=== PATIENT | female | born 1950 | race Caucasian/White ===

== ENCOUNTER 2025-03-30 06:14 | Emergency (ER) | payer MEDICARE, SELFPAY ==
--- NOTE | ~2025-03-30 | CT_ITS ---
CT HEAD NON-CONTRAST CT C-SPINE Clinical History: fall Comparison: None Technique: Unenhanced axial images skull base to vertex. Coronal, sagittal reformats. Axial images thoracic inlet to skull base. Sagittal and coronal reformats. CT images acquired with automatic exposure control for dose reduction DLP: 681 mGy-cm Findings: Head: Mild global atrophy Embolization coils along intracranial ICA left side. Associated streak artifact causes regional obscuration. Sulci, ventricles: Unremarkable. No intracerebral hemorrhage. No evidence acute territorial infarct. No mass effect, midline shift, intra-/extra-axial fluid collection. Bony calvarium intact. Visualized paranasal sinuses: Clear. Mastoid air cells: Clear. Right parietal scalp hematoma. C-spine: No acute fracture. Grade 1 anterolisthesis of C3 on 4, C4 on 5. Grade 1 retrolisthesis of C5 on C6. Vertebral bodies normal height and alignment. Mild degenerative changes. Disc spaces maintained. Prevertebral soft tissues within normal limits. Visualized lung apices: Scarring. Visualized thyroid: Unremarkable. No enlarged cervical nodes. IMPRESSION: HEAD: 1. No acute intracranial findings. C-SPINE: 1. No acute fracture. Reviewed, dictated and finalized at location R. IMPRESSION: HEAD: 1. No acute intracranial findings. C-SPINE: 1. No acute fracture.
[2025-03-30 06:15] VITALS: BP 194/94; PULSE 59; RESP 16; TEMP 36.4; O2SAT 100
[2025-03-30] MEDS: TETANUS,DIPHTHERIA,AC PERTUSSIS ADULT (0.5 ML) BOOSTRIX IM (06:26)
--- NOTE | 2025-03-30 06:35 | ED_ITS ---
HPI - Fall General Chief Complaint: Fall <Lucila Buitrago MD - Last Filed: 03/30/25 06:39> Stated Complaint: fall <Lucila Buitrago MD - Last Filed: 03/30/25 06:39> Time Seen by Provider: 03/30/25 06:21 <Lucila Buitrago MD - Last Filed: 03/30/25 06:39> History of Present Illness HPI Narrative: Patient was found with blood all over her bed, she denies any complaints and does not remember what happened. <Lucila Buitrago MD - Last Filed: 03/30/25 06:39> Related Data Allergies/Adverse Reactions: Allergies Allergy/AdvReac Type Severity Reaction Status Date / Time No Known Allergies Allergy Verified 03/30/25 09:40 <Lucila Buitrago MD - Last Filed: 03/30/25 06:39> Review of Systems Review of Systems: All systems reviewed & are unremarkable except as noted in HPI and below <Lucila Buitrago MD - Last Filed: 03/30/25 06:39> Exam Narrative: EXAMINATION OF ORGAN SYSTEMS/BODY AREAS: Constitutional: Vital signs per nursing GENERAL:[No acute distress, non-toxic appearing.] HEAD: Scalp laceration back of her head EYES: EOMI, conjunctiva normal ENT: Hearing grossly intact LUNGS: Nonlabored breathing. HEART: [Regular rate and rhythm] ABD: [Soft], [nontender to palpation] EXT: Normal range of motion, no deformity, no tenderness to palpation SKIN: Laceration to back of head NEURO: [Alert. No gross focal sensory or strength deficits.] PSYCH: Normal affect <Lucila Buitrago MD - Last Filed: 03/30/25 06:39> Course Vital Signs Vital signs: Vital Signs Temperature 97.6 F 03/30/25 06:15 Pulse Rate 59 L 03/30/25 06:15 Respiratory Rate 16 03/30/25 06:15 Blood Pressure 194/94 H 03/30/25 06:15 Pulse Oximetry 100 03/30/25 06:15 Oxygen Delivery Room Air 03/30/25 06:15 Temperature 97.6 F 03/30/25 06:15 Pulse Rate 67 03/30/25 09:40 Respiratory Rate 20 03/30/25 09:40 Blood Pressure 156/89 H 03/30/25 09:40 Pulse Oximetry 98 09/21/25 09:40 Oxygen Delivery Room Air 03/30/25 06:15 <Lucila Buitrago MD - Last Filed: 03/30/25 06:39> Vital Signs Temperature 97.6 F 03/30/25 06:15 Pulse Rate 59 L 03/30/25 06:15 Respiratory Rate 16 03/30/25 06:15 Blood Pressure 194/94 H 03/30/25 06:15 Pulse Oximetry 100 03/30/25 06:15 Oxygen Delivery Room Air 03/30/25 06:15 Temperature 97.6 F 03/30/25 06:15 Pulse Rate 67 03/30/25 09:40 Respiratory Rate 20 03/30/25 09:40 Blood Pressure 156/89 H 03/30/25 09:40 Pulse Oximetry 98 03/30/25 09:40 Oxygen Delivery Room Air 03/30/25 06:15 <Reilly Aden MD - Last Filed: 03/30/25 17:16> Procedures Laceration Laceration 1: Date: 03/30/25 <Lucila Buitrago MD - Last Filed: 03/30/25 06:39> Time: 06:37 <Lucila Buitrago MD - Last Filed: 03/30/25 06:39> Site: scalp <Lucila Buitrago MD - Last Filed: 03/30/25 06:39> Size (cm): 4 <Lucila Buitrago MD - Last Filed: 03/30/25 06:39> Description: linear <Lucila Buitrago MD - Last Filed: 03/30/25 06:39> Depth: simple, single layer <Lucila Buitrago MD - Last Filed: 03/30/25 06:39> Local Anesthetic: lidocaine 1% and with epi <Lucila Buitrago MD - Last Filed: 03/30/25 06:39> Amount of anesthesia used (mL): 3 <Lucila Buitrago MD - Last Filed: 03/30/25 06:39> Pre-repair: wound explored, irrigated, irrigated extensively and deep structures intact <Lucila Buitrago MD - Last Filed: 03/30/25 06:39> ====== Skin Level ======: Skin layer closed with: josé luis <Lucila Buitrago MD - Last Filed: 03/30/25 06:39> Number of sutures: 3 <Lucila Buitrago MD - Last Filed: 03/30/25 06:39> ====== Subcutaneous Layer ======: ====== Muscle Layer ======: ====== Tendon Layer ======: MDM - Fall MDM Narrative Medical decision making narrative: 74-year-old female presents here after she was found have head trauma, she does not know what happened, does have history of dementia. She does have a 4 cm laceration to the back of her head that is gently using, have cleaned this well, irrigated and cleaned with wound cleanser, and opted to close at this time with josé luis to prevent bleeding. CT head and C-spine ordered since she has no signs of injury elsewhere Patient signed out to oncoming ER physician pending CT <Lucila Buitrago MD - Last Filed: 03/30/25 06:39> 74-year-old female presents here after she was found have head trauma, she does not know what happened, does have history of dementia. She does have a 4 cm laceration to the back of her head that is gently using, have cleaned this well, irrigated and cleaned with wound cleanser, and opted to close at this time with josé luis to prevent bleeding. CT head and C-spine ordered since she has no signs of injury elsewhere Patient signed out to oncoming ER physician pending CT --- Patient care signed out to me by the overnight physician with CT pending to. Both CT brain CT cervical spine showed no acute abnormalities. Patient is at her baseline, laceration was repaired. Patient is being discharged back to her care facility. <Reilly Aden MD - Last Filed: 03/30/25 17:16> Differential Diagnosis Differential diagnosis: Likely other (Cervical spine fracture, subdural hematoma, subarachnoid hemorrhage, skull fracture, laceration) <Reilly Aden MD - Last Filed: 03/30/25 17:16> Discharge Plan Discharge Clinical Impression: Laceration of scalp, Head injury <Lucila Buitrago MD - Last Filed: 03/30/25 06:39> Patient Disposition: Home <Lucila Buitrago MD - Last Filed: 03/30/25 06:39> Condition: Stable <Lucila Buitrago MD - Last Filed: 03/30/25 06:39> Instructions: Antibiotic Form, Head Injury (ED) <Lucila Buitrago MD - Last Filed: 03/30/25 06:39> Additional Instructions: You have 3 josé luis in the back of your scalp that will need to be removed in 7-10 days. Please follow-up with your doctor and come back to the ER for any further issues. <Lucila Buitrago MD - Last Filed: 03/30/25 06:39> Patient Language: Azerbaijani <Lucila Buitrago MD - Last Filed: 03/30/25 06:39> Follow-up/Referrals: Diana,Rosa Pena MD [Primary Care Provider] <Lucila Buitrago MD - Last Filed: 03/30/25 06:39>
[2025-03-30 09:40] VITALS: BP 156/89; PULSE 67; RESP 20; O2SAT 98
== END 2025-03-30 09:44 | disposition home or self-care (01) ==
LOC: ANHED 06:43
PROVIDERS: Emergency Provider Emergency Medicine; PCP Internal Medicine
DX: S01.01XA Laceration without foreign body of scalp, initial encounter (principal); X58.XXXA Exposure to other specified factors, initial encounter
CPT/HCPCS: 70450; 72125; 90715; 99284

== ENCOUNTER 2025-05-22 19:14 | Emergency (ER) | payer MEDICARE, OTHER, SELFPAY ==
[2025-05-22] VITALS (16 sets, daily range): BP systolic 97–187; BP diastolic 46–96; PULSE 57–71; RESP 15–22; TEMP 36.8; O2SAT 97–100
--- NOTE | ~2025-05-22 | XR_ITS ---
XR chest 2V HOSTORY: SOB COMPARISON:[ None] FINDINGS: Frontal and lateral views of the chest were obtained. The lungs are clear. The heart size is normal in size. Pulmonary vasculature is unremarkable. Large hiatal hernia is noted. Osseous structures are intact. IMPRESSION: No acute lung findings.] [There is a large hiatal hernia.] Reviewed, dictated and finalized at location S. [employer]
[2025-05-22] MEDS: IPRATROPIUM BR 0.02% INH SOLN 0.5 MG/2.5 ML VIAL 1 MG INHALATION (21:33)
[2025-05-22] MEDS: ALBUTEROL SULFATE NEB 2.5 MG/3 ML INH 5 MG INHALATION (21:34)
[2025-05-22 21:58] LABS: Hematocrit 35.9 % (37.0-47.0); Hemoglobin 11.0 g/dL (12.0-15.0); Immature Granulocyte Percent A 0.3 % (0-0.5); Lymphocytes Absolute Auto 1.76 K/mm3 (0.9-3.2); Mean Corpuscular HGB Conc 30.6 g/dl (32-36); Mean Corpuscular Hemoglobin 27.1 pg (26-34); Mean Corpuscular Volume 88.4 fl (80-100); Nucleated Red Blood Cells Absolute Auto 0.000 K/mm3 (0.0-0.012); Nucleated Red Blood Cells Perc 0.0 % (0.0-0.2); Platelet Count Result 268 k/mm3 (150-375); Red Blood Count 4.06 M/mm3 (4.2-5.4); White Blood Count 6.8 K/mm3 (4.5-10.0)
[2025-05-22 22:13] LABS: Alanine Aminotransferase 13 U/L (6-35); Albumin Level 3.7 g/dL (3.5-5.1); Alkaline Phosphatase 67 U/L (38-126); Anion Gap 5 mmol/L (4-12); Aspartate Amino Transferase 18 U/L (14-36); Bilirubin,Total 0.3 mg/dL (0.2-1.3); Blood Urea Nitrogen 27 mg/dL (7-17); Calcium 9.3 mg/dL (8.4-10.2); Carbon Dioxide 27 mmol/L (22-30); Chloride 108 mmol/L (98-107); Estimated CRCL calculation 60 ml/min; Estimated Glomerular Filt Rate > 60; Glucose 104 mg/dL (65-110); Potassium 4.1 mmol/L (3.4-5.0); Sodium 140 mmol/L (137-145); Total Protein 6.2 g/dL (6.3-8.2)
[2025-05-22 22:17] LABS: INR 1.1; Prothrombin Time 13.7 Seconds (11.1-14.7)
[2025-05-22 22:18] LABS: Partial Thromboplastin Time 25.9 Seconds (22.3-36.8)
[2025-05-22 22:34] LABS: Influenza A QL RT-PCR Negative (Negative); Influenza B QL RT-PCR Negative (Negative); RSV RNA, RT-PCR Negative (Negative); SARS-CoV-2 RNA PCR Negative (Negative)
--- NOTE | 2025-05-22 22:51 | ED_ITS ---
HPI - General Adult General Chief complaint: Shortness of Breath/Dyspnea <Reilly Aden MD - Last Filed: 05/28/25 21:58> Stated complaint: wheezing <Reilly Aden MD - Last Filed: 05/28/25 21:58> Time Seen by Provider: 05/22/25 19:30 <Reilly dAen MD - Last Filed: 05/28/25 21:58> History of Present Illness HPI narrative: 74-year-old female history of hypertension, COPD and dementia presents emergency department for evaluation for increased shortness of breath. [facility] reports the patient ran out of her albuterol inhaler today patient was treated with DuoNeb in route. Upon arrival emergency department patient does still have significant wheeze on exam. Patient denies any complaints but does have increased work of breathing. Patient is saturating well on room air. <Reilly Aden MD - Last Filed: 05/28/25 21:58> Related Data Allergies/adverse reactions: Allergies Allergy/AdvReac Type Severity Reaction Status Date / Time No Known Allergies Allergy Verified 03/30/25 09:40 <Reilly Aden MD - Last Filed: 05/28/25 21:58> Review of Systems 2 Review of Systems: ROS unobtainable: Yes unobtainable due to medical condition <Reilly Aden MD - Last Filed: 05/28/25 21:58> Exam 2 Narrative: APPEARANCE: Ill-appearing HEAD: normocephalic, atraumatic. EYES: PERRLA/EOMI, conjunctivae clear. NOSE: Normal no drainage EARS:TMS clear with good light reflex. THROAT: Pharynx clear, no exudate. NECK: Supple. No adenopathy, no masses. RESPIRATORY: Significant expiratory wheeze and increased work of breathing CARDIOVASCULAR: Regular rate and rhythm without murmurs rubs or gallops. ABDOMINAL: Soft, nontender, nondistended, normal bowel sounds MUSCULOSKELETAL: Moves all extremities. Strength/ROM intact, No edema, No calf tenderness. NEURO: Alert. Cranial nerves II through XII intact. Good gait. Good coordination SKIN: Warm, dry. Normal Color <Reilly Aden MD - Last Filed: 05/28/25 21:58> Course Vital Signs Vital signs: Vital Signs Temperature 98.3 F 05/22/25 19:15 Pulse Rate 69 05/22/25 19:15 Respiratory Rate 19 05/22/25 19:15 Blood Pressure 104/49 L 05/22/25 19:15 Pulse Oximetry 100 05/22/25 19:15 Temperature 98.3 F 05/22/25 19:15 Pulse Rate 71 05/22/25 22:32 Respiratory Rate 22 H 05/22/25 22:32 Blood Pressure 157/96 H 05/22/25 22:32 Pulse Oximetry 100 05/22/25 21:45 Oxygen Delivery Room Air 05/22/25 19:24 <Reilly Aden MD - Last Filed: 05/28/25 21:58> Vital Signs Temperature 98.3 F 05/22/25 19:15 Pulse Rate 69 05/22/25 19:15 Respiratory Rate 19 05/22/25 19:15 Blood Pressure 104/49 L 05/22/25 19:15 Pulse Oximetry 100 05/22/25 19:15 Temperature 98.3 F 05/22/25 19:15 Pulse Rate 71 05/22/25 22:32 Respiratory Rate 22 H 05/22/25 22:32 Blood Pressure 157/96 H 05/22/25 22:32 Pulse Oximetry 100 05/22/25 21:45 Oxygen Delivery Room Air 05/22/25 19:24 <Melissa Lutz APRN - Last Filed: 05/23/25 00:08> Medical Decision Making MDM Narrative Medical decision making narrative: 74-year-old female with history of COPD dementia and hypertension presents emergency department for evaluation for worsening shortness of breath. Patient did have expiratory wheeze on exam and is being treated with 5 mg of nebulized albuterol. Patient is currently afebrile with no leukocytosis hemoglobin 11.0. INR of 1.1. No acute abnormalities on her CMP patient was negative for influenza RSV and for COVID. X-ray shows no acute cardiopulmonary abnormality. Patient was also treated with 125 mg IV Solu-Medrol. At time of sign-out response to breathing treatment is pending. <Reilly Aden MD - Last Filed: 05/28/25 21:58> 74-year-old female with history of COPD dementia and hypertension presents emergency department for evaluation for worsening shortness of breath. Patient did have expiratory wheeze on exam and is being treated with 5 mg of nebulized albuterol. Patient is currently afebrile with no leukocytosis hemoglobin 11.0. INR of 1.1. No acute abnormalities on her CMP patient was negative for influenza RSV and for COVID. X-ray shows no acute cardiopulmonary abnormality. Patient was also treated with 125 mg IV Solu-Medrol. At time of sign-out response to breathing treatment is pending. 2200-I assumed care of this patient. Patient Education/Shared MDM: Upon reexamination, patient's lungs are much improved. She is attempting to get out of bed at the time of his reexamination. Patient should follow-up with her primary care provider as soon as possible for further evaluation. She will sent home with a prescription for a nebulizer, albuterol, and a Medrol Dosepak. Vital signs stable at time of discharge. < Melissa Lutz APRN - Last Filed: 05/23/25 00:08> Differential Diagnosis Differential Diagnosis: COPD exacerbation, CHF exacerbation, pneumonia <Melissa Lutz APRN - Last Filed: 05/23/25 00:08> Vital Signs Vital Signs: Vital Signs Temperature 98.3 F 05/22/25 19:15 Pulse Rate 69 05/22/25 19:15 Respiratory Rate 19 05/22/25 19:15 Blood Pressure 104/49 L 05/22/25 19:15 Pulse Oximetry 100 05/22/25 19:15 Temperature 98.3 F 05/22/25 19:15 Pulse Rate 71 05/22/25 22:32 Respiratory Rate 22 H 05/22/25 22:32 Blood Pressure 157/96 H 05/22/25 22:32 Pulse Oximetry 100 05/22/25 21:45 Oxygen Delivery Room Air 05/22/25 19:24 <Reilly Aden MD - Last Filed: 05/28/25 21:58> Vital Signs Temperature 98.3 F 05/22/25 19:15 Pulse Rate 69 05/22/25 19:15 Respiratory Rate 19 05/22/25 19:15 Blood Pressure 104/49 L 05/22/25 19:15 Pulse Oximetry 100 05/22/25 19:15 Temperature 98.3 F 05/22/25 19:15 Pulse Rate 71 05/22/25 22:32 Respiratory Rate 22 H 05/22/25 22:32 Blood Pressure 157/96 H 05/22/25 22:32 Pulse Oximetry 100 05/22/25 21:45 Oxygen Delivery Room Air 05/22/25 19:24 <Melissa Lutz APRN - Last Filed: 05/23/25 00:08> Lab Data Lab results reviewed: Yes I reviewed the patient's lab results. <Melissa Lutz APRN - Last Filed: 05/23/25 00:08> Result diagrams: 05/22/25 21:48 05/22/25 21:48 <Reilly Aden MD - Last Filed: 05/28/25 21:58> Labs: Lab Results 05/22/25 Range/Units 21:48 WBC 6.8 (4.5-10.0) K/mm3 RBC 4.06 L (4.2-5.4) M/mm3 Hgb 11.0 L (12.0-15.0) g/dL Hct 35.9 L (37.0-47.0) % MCV 88.4 (80-100) fl MCH 27.1 (26-34) pg MCHC 30.6 L (32-36) g/dl RDW 12.9 (11.5-14.5) % Plt Count 268 (150-375) k/mm3 MPV 9.8 (7.4-10.4) fl Immature Gran % (Auto) 0.3 (0-0.5) % Neut % (Auto) 61.9 (45.5-73.1) % Lymph % (Auto) 26.0 (18.3-44.2) % [place] % (Auto) 8.1 (2.6-8.5) % Eos % (Auto) 3.0 (0-4.4) % Baso % (Auto) 0.7 (0.2-1.2) % Lymph # (Auto) 1.76 (0.9-3.2) K/mm3 [place] # (Auto) 0.6 (0.1-0.6) K/mm3 Eos # (Auto) 0.2 (0-0.3) K/mm3 Baso # (Auto) 0.1 (0.0-0.1) K/mm3 Abs Immat Gran (auto) 0.02 (0.00-0.031) K/mm3 Absolute Neuts (auto) 4.2 (1.3-6.7) K/mm3 Absolute Nucleated RBC 0.000 (0.0-0.012) K/mm3 Nucleated RBC % 0.0 (0.0-0.2) % PT 13.7 (11.1-14.7) Seconds INR 1.1 APTT 25.9 (22.3-36.8) Seconds Sodium 140 (137-145) mmol/L Potassium 4.1 (3.4-5.0) mmol/L Chloride 108 H (98-107) mmol/L Carbon Dioxide 27 (22-30) mmol/L Anion Gap 5 (4-12) mmol/L BUN 27 H (7-17) mg/dL Creatinine 0.64 L (0.7-1.0) mg/dL Estim Creat Clear Calc 60 ml/min Estimated GFR > 60 (59 - ) Glucose 104 (65-110) mg/dL Calcium 9.3 (8.4-10.2) mg/dL Total Bilirubin 0.3 (0.2-1.3) mg/dL AST 18 (14-36) U/L ALT 13 (6-35) U/L Alkaline Phosphatase 67 (38-126) U/L Total Protein 6.2 L (6.3-8.2) g/dL Albumin 3.7 (3.5-5.1) g/dL Influenza A (RT-PCR) Negative (Negative) Influenza B (RT-PCR) Negative (Negative) RSV (RT-PCR) Negative (Negative) SARS-CoV-2 RNA (RT-PCR) Negative (Negative) <Reilly Aden MD - Last Filed: 05/28/25 21:58> Lab Results 05/22/25 Range/Units 21:48 WBC 6.8 (4.5-10.0) K/mm3 RBC 4.06 L (4.2-5.4) M/mm3 Hgb 11.0 L (12.0-15.0) g/dL Hct 35.9 L (37.0-47.0) % MCV 88.4 (80-100) fl MCH 27.1 (26-34) pg MCHC 30.6 L (32-36) g/dl RDW 12.9 (11.5-14.5) % Plt Count 268 (150-375) k/mm3 MPV 9.8 (7.4-10.4) fl Immature Gran % (Auto) 0.3 (0-0.5) % Neut % (Auto) 61.9 (45.5-73.1) % Lymph % (Auto) 26.0 (18.3-44.2) % [place] % (Auto) 8.1 (2.6-8.5) % Eos % (Auto) 3.0 (0-4.4) % Baso % (Auto) 0.7 (0.2-1.2) % Lymph # (Auto) 1.76 (0.9-3.2) K/mm3 [place] # (Auto) 0.6 (0.1-0.6) K/mm3 Eos # (Auto) 0.2 (0-0.3) K/mm3 Baso # (Auto) 0.1 (0.0-0.1) K/mm3 Abs Immat Gran (auto) 0.02 (0.00-0.031) K/mm3 Absolute Neuts (auto) 4.2 (1.3-6.7) K/mm3 Absolute Nucleated RBC 0.000 (0.0-0.012) K/mm3 Nucleated RBC % 0.0 (0.0-0.2) % PT 13.7 (11.1-14.7) Seconds INR 1.1 APTT 25.9 (22.3-36.8) Seconds Sodium 140 (137-145) mmol/L Potassium 4.1 (3.4-5.0) mmol/L Chloride 108 H (98-107) mmol/L Carbon Dioxide 27 (22-30) mmol/L Anion Gap 5 (4-12) mmol/L BUN 27 H (7-17) mg/dL Creatinine 0.64 L (0.7-1.0) mg/dL Estim Creat Clear Calc 60 ml/min Estimated GFR > 60 (59 - ) Glucose 104 (65-110) mg/dL Calcium 9.3 (8.4-10.2) mg/dL Total Bilirubin 0.3 (0.2-1.3) mg/dL AST 18 (14-36) U/L ALT 13 (6-35) U/L Alkaline Phosphatase 67 (38-126) U/L Total Protein 6.2 L (6.3-8.2) g/dL Albumin 3.7 (3.5-5.1) g/dL Influenza A (RT-PCR) Negative (Negative) Influenza B (RT-PCR) Negative (Negative) RSV (RT-PCR) Negative (Negative) SARS-CoV-2 RNA (RT-PCR) Negative (Negative) <Melissa Lutz APRN - Last Filed: 05/23/25 00:08> Imaging Data Attestation: I personally reviewed and interpreted this imaging study as follows: < Melissa Lutz APRN - Last Filed: 05/23/25 00:08> Radiologist's impression: Impressions Chest X-Ray 05/22/25 20:30 IMPRESSION: No acute lung findings.] [There is a large hiatal hernia.] <Melissa Lutz APRN - Last Filed: 05/23/25 00:08> Discharge Plan Discharge Clinical Impression: Acute exacerbation of chronic bronchitis, Bilateral wheezing <Reilly Aden MD - Last Filed: 05/28/25 21:58> Patient Disposition: [facility] <Reilly Aden MD - Last Filed: 05/28/25 21:58> Condition: Stable <Reilly Aden MD - Last Filed: 05/28/25 21:58> Instructions: Wheezing (ED) <Reilly Aden MD - Last Filed: 05/28/25 21:58> Additional Instructions: Please return to the ER with any worsening symptoms. Follow-up with primary care provider as soon as possible for further evaluation and treatment. Take all medications as prescribed, including regularly scheduled medications. <Reilly Aden MD - Last Filed: 05/28/25 21:58> Patient Language: [place] <Reilly Aden MD - Last Filed: 05/28/25 21:58> Prescriptions: New methylprednisolone [Medrol ([place])] 4 mg tablets,dose pack See Rx Instructions .ROUTE .COMPLEX Qty: 21 0RF Rx Instructions: for 6 days (DME) nebulizer and compressor [Easy Neb Compressor Nebulizer] Device See Rx Instructions .Route Qty: 1 0RF Rx Instructions: As directed albuterol sulfate 2.5 mg/0.5 mL solution for nebulization 5 mg inhalation Q6H PRN (Reason: shortness of breath or wheezing) Qty: 30 0RF <Reilly Aden MD - Last Filed: 05/28/25 21:58> Follow-up/Referrals: Diana,Rosa Pena MD [Primary Care Provider] <Reilly Aden MD - Last Filed: 05/28/25 21:58> Stand Alone Forms: [facility] <Reilly Aden MD - Last Filed: 05/28/25 21:58> Time of Disposition: 00:03 <Reilly Aden MD - Last Filed: 05/28/25 21:58> 00:03 <Melissa Lutz APRN - Last Filed: 05/23/25 00:08>
== END 2025-05-23 05:43 ==
PROVIDERS: Emergency Provider Emergency Medicine; PCP Internal Medicine
DX: J44.0 Chronic obstructive pulmonary disease with (acute) lower respiratory infection (principal); J44.1 Chronic obstructive pulmonary disease with (acute) exacerbation; Z20.822 Contact with and (suspected) exposure to COVID-19
CPT/HCPCS: 36415; 71046; 80053; 85025; 85610; 85730; 87637; 94640; 96374; 99284; J2919